=== PATIENT | female | born 1935 | race Caucasian/White ===

== ENCOUNTER 2016-05-13 06:42 | Day surgery (SDC) | payer MEDICARE, BC ==
[~2016-05-13] VITALS: Ht 157.5 cm; Wt 50.9 kg
--- NOTE | 2016-05-24 11:38 | OR ---
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 POSTOP DIAGNOSES: 1. 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 2. Normal cystoscopy. PROCEDURES: 1. Diagnostic cystoscopy. 2. Left ureteral stent change - uneventful. ANESTHESIA: General. INDICATION: The patient is a pleasant white female with left ureteral obstruction secondary to ovarian carcinoma. She presents today for routine stent change. She has otherwise been doing well. Risks and benefits have been discussed. PROCEDURE IN DETAIL: The patient was taken was taken to OR #5, placed on the table in supine position. After adequate anesthesia, transferred to dorsal lithotomy position, prepped and draped in the usual fashion. A time-out was taken for patient name, date of , planned procedure, preoperative antibiotics and allergies. A 22-German cystoscope with 30-degree lens advanced to the level of bladder. The urethra was unremarkable. Upon entering the bladder, left ureteral stent was noted exiting the left ureteral orifice. There were no encrustations of the stent. At this point, a routine cystoscopy ruled out any intraluminal bladder pathology. No suspicious erythema. No stones, foreign bodies, or tumors noted. An angle tip Glidewire was then advanced through the scope under fluoroscopic visualization, alongside the stent the upper collecting system. The scope was removed leaving the guidewire indwelling. The scope was replaced in the ADMIT: 05/13/2016 RM/LOC: [facility] MR#: [id number] [address] [id number] SONI KALINAKLEBER Cabrera [address] [place] [address] Operative/Delivery Room Report SEX: F AGE: 81 : 1935 bladder. The distal tip of the stent engaged and the stent was removed intact. The guidewire was then backloaded through the cystoscope. Cystoscope advanced to the level of the bladder. Under direct fluoroscopic visualization, a 6-German, 24 cm double-J stent was placed. With removing of the guidewire, we had nice curl within the renal pelvis and nice curl within the urinary bladder. The bladder was decompressed and the scope withdrawn. The patient taken out of dorsal lithotomy position. She was extubated uneventfully and transferred to recovery room in stable condition. DISPOSITION: The patient will be discharged home later on today. Medications will be Cipro 250 mg 1 p.o. b.i.d. for the next 3 days. I will see her back in 2-3 months in our [facility] to discuss the next stent change. Jorge Rodriguez MD/ umberto JOB #: [id number] CC: Jorge Rodriguez, Attending Physician Onel Chan, Family Physician
== END 2016-05-13 10:37 | disposition home or self-care (01) ==
LOC: SSS 06:42
PROC: 0T778DZ Dilation of Left Ureter with Intraluminal Device, Via Natural or Artificial Opening Endoscopic (ICD-10-PCS; principal; 2016-05-13)
DX: Z46.6 Encounter for fitting and adjustment of urinary device (principal); N13.5 Crossing vessel and stricture of ureter without hydronephrosis; I10 Essential (primary) hypertension; E78.2 Mixed hyperlipidemia; M81.0 Age-related osteoporosis without current pathological fracture; Z88.5 Allergy status to narcotic agent; Z85.43 Personal history of malignant neoplasm of ovary; Z98.890 Other specified postprocedural states